=== PATIENT | female | born 1985 | race Caucasian/White ===

== ENCOUNTER → 2024-03-07 16:31 | Outpatient (REF) | payer OTHER, SELFPAY | LOC: RAD 16:31 | PROVIDERS: ATTENDING PHYSICIAN Physician Assistant | DX: Q67.6 Pectus excavatum (principal); R06.02 Shortness of breath; R06.09 Other forms of dyspnea; F17.200 Nicotine dependence, unspecified, uncomplicated | CPT/HCPCS: 71046 ==

== ENCOUNTER → 2024-03-19 08:50 | Outpatient (REF) | payer OTHER, SELFPAY | LOC: RCS 08:50 | PROVIDERS: ATTENDING PHYSICIAN Physician Assistant | DX: Q67.6 Pectus excavatum (principal); R06.02 Shortness of breath; F17.200 Nicotine dependence, unspecified, uncomplicated; R06.09 Other forms of dyspnea | CPT/HCPCS: 93306 ==

== ENCOUNTER → 2024-03-23 08:57 | Outpatient (REF) | payer OTHER, SELFPAY | LOC: RAD 08:57 | PROVIDERS: ATTENDING PHYSICIAN Physician Assistant | DX: Q67.6 Pectus excavatum (principal); R07.89 Other chest pain; R06.02 Shortness of breath | CPT/HCPCS: 71260; Q9967 ==